=== PATIENT | born 1980 | race Caucasian/White ===

== ENCOUNTER → 2024-05-17 11:36 | Outpatient (BNVA) | payer MEDICAID, SELFPAY | PROVIDERS: Referring Provider Nurse Practitioner Occupational Health; Visit Provider Surgery | DX: Z12.11 Encounter for screening for malignant neoplasm of colon; R03.0 Elevated blood-pressure reading, without diagnosis of hypertension | CPT/HCPCS: 99204 ==

== ENCOUNTER 2024-06-01 07:15 | Day surgery (SDC) | payer MEDICAID, SELFPAY ==
[2024-06-01 07:28] VITALS: BP 150/106; PULSE 75; RESP 18; TEMP 36.8; O2SAT 96; BMI 30.4
--- NOTE | 2024-06-01 07:34 | P.ANESASSM_ITS ---
Pre-Anesthetic Assessment Height/Weight: Height 1.73 m Weight 90.718 kg Temp Pulse Resp BP Pulse Ox O2 Del Method 98.3 F 75 18 150/106 96 Room Air 06/01/24 07:28 06/01/24 07:28 06/01/24 07:28 06/01/24 07:28 06/01/24 07:28 06/01/24 07:28 Preop Diagnosis: screening Operation Date: 06/01/24 08:20 Proposed Procedures p EGD 64912, 93604, G0105, K92.1. K21.9, R10.9(Not Applicable) - Hernesto Vicente MD s Colonoscopy(Not Applicable) - Hernesto Vicente MD Familial anesthetic complications: none Was Beta Charly taken within 24 hours: N/A Was Clonidine taken within 24 hours: N/A Last intake: Intake Last Liquid Date 05/31/24 Last Liquid Time 21:00 Last Solid Date 05/31/24 Last Solid Time 11:00 Social No alcohol and No tobacco 1/2 PPD pack(s) per day drinks daily, marijuanna daily Exam alert, oriented x 3, clear to auscultation bilaterally and regular rate & rhythm Airway Submandibular: within normal limits Cervical ROM: within normal limits Mallampati: Class II Dentition: full History/ROS No significant history except as noted and No significant complaints Pulmonary Cough CV/HEM None reported None reported Hepatic Hepatitis Hep C GI Gastroesophageal Reflux Disease Metabolic None reported Musc/skel None reported Neuropsych None reported Anesthetic Plan ASA status: 2 Anesthesia: MAC Medications/Allergies Home Medications Medication Instructions Recorded Confirmed Last Taken Type omeprazole 40 mg capsule,delayed 40 mg PO DAILY PRN Heartburn 05/17/24 05/30/24 Unknown History release Allergies Allergy/AdvReac Type Severity Reaction Status Date / Time No Known Allergies Allergy Unverified 05/17/24 11:44 [facility] Anesthesia Family History (Updated 05/17/24 @ 11:46 by JOHNNA Chandler) Grandfather Heart disease Social History (Updated 05/17/24 @ 11:49 by JOHNNA Chandler) Smoking and tobacco/nicotine status: current every day tobacco/nicotine user cigarettes Alcohol intake: current Alcohol intake frequency: holidays/special occasions only Data Anesthesia Cardiac Studies: No Data to Display
[2024-06-01] MEDS: sodium chloride 0.9% 1,000 ML 30 ML IV (07:36)
--- NOTE | 2024-06-01 07:40 | W.PM.OPSUD ---
Surgery/Procedure H&P Update DATE OF PROCEDURE: June 01, 2024 DATE H&P PERFORMED: 05/17/24 H&P UPDATE INFORMATION: I have reviewed H&P completed within last 30 days, I have examined patient prior to procedure, No changes to prior documentation and [place] [facility] date indicated PREOP DIAGNOSIS: screening PLANNED PROCEDURE: Operation Date: 06/01/24 08:20 Proposed Procedures p EGD 37251, 93402, G0105, K92.1. K21.9, R10.9(Not Applicable) - Hernesto Vicente MD s Colonoscopy(Not Applicable) - Hernesto Vicente MD
[2024-06-01 09:10] VITALS: BP 94/74; PULSE 85; RESP 20; TEMP 36.1; O2SAT 96
[2024-06-01 09:25] VITALS: BP 132/110; PULSE 84; RESP 18; O2SAT 99
--- NOTE | 2024-06-01 09:50 | ANE.PACU2 ---
Inpatient post-anesthesia follow up: Airway intact: Yes Vital signs: Temperature 97 F Pulse Rate 84 Respiratory Rate 18 Blood Pressure 132/110 Pulse Oximetry 99 Oxygen Delivery Me thod Room Air Oxygen Flow Rate Fraction of Inspir ed Oxygen Hydration adequate: Yes Nausea and vomiting: No Pain level: 1 Mental status: Baseline
== END 2024-06-01 09:50 | disposition home or self-care (01) ==
PROVIDERS: PCP Nurse Practitioner; Visit Provider Surgery
PROC: 0DJ08ZZ Inspection of Upper Intestinal Tract, Via Natural or Artificial Opening Endoscopic (ICD-10-PCS; CPT 43235; principal; 2024-06-01 08:20)
PROC: 0DJD8ZZ Inspection of Lower Intestinal Tract, Via Natural or Artificial Opening Endoscopic (ICD-10-PCS; CPT 45378; 2024-06-01 08:20)
DX: K92.1 Melena (principal); K21.9 Gastro-esophageal reflux disease without esophagitis; D12.5 Benign neoplasm of sigmoid colon; K21.00 Gastro-esophageal reflux disease with esophagitis, without bleeding; Z86.19 Personal history of other infectious and parasitic diseases; F17.210 Nicotine dependence, cigarettes, uncomplicated; K44.9 Diaphragmatic hernia without obstruction or gangrene; K29.70 Gastritis, unspecified, without bleeding
CPT/HCPCS: 43239; 45385; 88305; J2704; J7030

== ENCOUNTER 2024-12-27 09:26 | Day surgery (SDC) | payer MEDICAID, SELFPAY ==
--- NOTE | 2024-12-27 09:37 | W.PM.OPSUD ---
Surgery/Procedure H&P Update DATE OF PROCEDURE: December 27, 2024 DATE H&P PERFORMED: 12/05/24 H&P UPDATE INFORMATION: I have reviewed H&P completed within last 30 days, I have examined patient prior to procedure, No changes to prior documentation, Changes to prior documentation as noted here and Risks and benefits of the procedure reviewed PLANNED PROCEDURE: Operation Date: 12/27/24 11:15 Proposed Procedures p EGD 05904 K27.9(Not Applicable) - Hernesto Vicente MD
[2024-12-27 09:39] VITALS: BP 128/83; PULSE 68; RESP 16; TEMP 36.8; O2SAT 95; BMI 30.4
[2024-12-27] MEDS: sodium chloride 0.9% 1,000 ML 15 ML IV (09:50)
--- NOTE | 2024-12-27 10:44 | ANES.PREANE2 ---
Pre-Anesthetic Assessment Height/Weight: Height 1.73 m Weight 90.718 kg Temp Pulse Resp BP Pulse Ox O2 Del Method 98.3 F 68 16 128/83 95 Room Air 12/27/24 09:39 12/27/24 09:39 12/27/24 09:39 12/27/24 09:39 12/27/24 09:39 12/27/24 09:39 Preop Diagnosis: PUD Operation Date: 12/27/24 11:15 Proposed Procedures p EGD 69189 K27.9(Not Applicable) - Hernesto Vicente MD Familial anesthetic complications: none Was Beta Charly taken within 24 hours: N/A Was Clonidine taken within 24 hours: N/A Last intake: Intake Last Liquid Date 12/26/24 Last Liquid Time 23:00 Last Solid Date 12/26/24 Last Solid Time 23:00 Social Tobacco (3-4 per day) cannibus use 1-2G per day. Exam alert, oriented x 3, clear to auscultation bilaterally and No regular rate & rhythm Airway Submandibular: within normal limits Cervical ROM: within normal limits Mallampati: Class II Dentition: full Comments: Comments: bearded Pulmonary None reported CV/HEM None reported None reported Hepatic None reported GI Peptic Ulcer Disease Metabolic None reported Musc/skel None reported Neuropsych Anxiety (moderate) Medications/Allergies Home Medications ?Medication ?Instructions ?Recorded ?Confirmed ?Last Taken ?Type pantoprazole 40 mg tablet,delayed 40 mg PO BID #60 tabs 06/01/24 12/25/24 12/26/24 15:00 Rx release sucralfate 100 mg/mL oral 1 g (10 mL) PO BID 4 weeks #560 mL 06/01/24 12/25/24 12/26/24 15:00 Rx suspension aspirin 81 mg tablet 81 mg PO DAILY 12/05/24 12/25/24 12/26/24 15:00 History varenicline tartrate 1 mg tablet 1 mg PO BID 12/05/24 12/25/24 12/26/24 15:00 History (Chantix) potassium 95 mg tablet 95 mg PO DAILY 12/25/24 12/25/24 12/26/24 15:00 History Allergies Allergy/AdvReac Type Severity Reaction Status Date / Time No Known Allergies Allergy Verified 12/25/24 13:52 Current Medications Generic Name Dose Route Start Last Admin Trade Name Freq PRN Reason Stop Dose Admin Sodium Chloride 1,000 mls @ 15 mls/hr 12/27/24 09:31 12/27/24 09:50 Sodium Chloride 0.9% IV 12/28/24 09:30 15 mls/hr .Q24H PRN Administration COLONOSCOPY FLUIDS PFSH Anesthesia Family History Grandfather Heart disease Social History Smoking and tobacco/nicotine status: current every day tobacco/nicotine user cigarettes Alcohol intake: current Alcohol intake frequency: holidays/special occasions only
[2024-12-27 11:32] VITALS: BP 113/96; PULSE 113; RESP 12; TEMP 36.1; O2SAT 96
[2024-12-27 11:51] VITALS: BP 129/90; PULSE 95; RESP 16; O2SAT 96
--- NOTE | 2024-12-27 11:59 | ANE.PACU2 ---
Inpatient post-anesthesia follow up: Airway intact: Yes Vital signs: Temperature 97.0 F Pulse Rate 95 Respiratory Rate 16 Blood Pressure 129/90 Pulse Oximetry 96 Oxygen Delivery Me thod Room Air Oxygen Flow Rate Fraction of Inspir ed Oxygen Hydration adequate: Yes Nausea and vomiting: No Pain level: 1 Mental status: Baseline
== END 2024-12-27 11:59 | disposition home or self-care (01) ==
PROVIDERS: PCP Nurse Practitioner; Visit Provider Surgery
PROC: 0DJ08ZZ Inspection of Upper Intestinal Tract, Via Natural or Artificial Opening Endoscopic (ICD-10-PCS; principal; 2024-12-27 11:15)
DX: K29.71 Gastritis, unspecified, with bleeding (principal); K21.01 Gastro-esophageal reflux disease with esophagitis, with bleeding; K27.4 Chronic or unspecified peptic ulcer, site unspecified, with hemorrhage; K44.9 Diaphragmatic hernia without obstruction or gangrene; F17.210 Nicotine dependence, cigarettes, uncomplicated; Z79.899 Other long term (current) drug therapy; R19.5 Other fecal abnormalities; Z79.82 Long term (current) use of aspirin
CPT/HCPCS: 43239; 88305; J2704; J7030